=== PATIENT | male | born 1965 | race Caucasian/White ===

== ENCOUNTER 2017-06-03 18:14 | Emergency (ER) | payer OTHER ==
[2017-06-03] MEDS ORDERED: Lidocaine 2% PF * 5 ML VIAL INJ ONE (18:48)
[2017-06-03 18:54] VITALS: BP 129/80
[2017-06-03] MEDS ORDERED: Sulfamethox/Trimethoprim DS 800/160* TAB PO ONE (19:23)
[2017-06-03] MEDS ORDERED: Cephalexin CAP* 500 MG PO ONE (19:23)
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
== END 2017-06-03 19:29 | disposition home or self-care (01) ==
LOC: UCCORT 18:14
DX: L02.414 Cutaneous abscess of left upper limb (principal); S16.1XXA Strain of muscle, fascia and tendon at neck level, initial encounter; X58.XXXA Exposure to other specified factors, initial encounter; Y93.9 Activity, unspecified; Y92.9 Unspecified place or not applicable; F17.210 Nicotine dependence, cigarettes, uncomplicated
CPT/HCPCS: 10060; 99212; A9270-GY; G0463

== ENCOUNTER 2019-05-09 12:17 | Emergency (ER) | payer OTHER ==
[2019-05-09 13:40] VITALS: BP 117/80
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
== END 2019-05-09 14:14 | disposition home or self-care (01) ==
LOC: UCCORT 12:17
DX: M62.81 Muscle weakness (generalized) (principal); M54.10 Radiculopathy, site unspecified; F19.20 Other psychoactive substance dependence, uncomplicated; F17.210 Nicotine dependence, cigarettes, uncomplicated
CPT/HCPCS: 99212; G0463